=== PATIENT | male | born 1960 | race Caucasian/White ===

== ENCOUNTER 2017-07-10 12:33 | Emergency (ER) | payer OTHER ==
[~2017-07-10] VITALS: Ht 177.8 cm; Wt 92.0 kg
[2017-07-10 12:34] VITALS: BP 156/93; PULSE 128; RESP 20; TEMP 98.8; O2SAT 96
--- NOTE | 2017-07-10 12:50 | PD ---
Physical Exam Date Seen by Provider: Jul 10, 2017 Time Seen by Provider: 12:48 Narrative 57 YOWM C/O HEMORROIDS.. VISITING FOR [place]. NO ABD PAIN. VS REVIEWED PT WAITING FOR BED PLACEMENT. Data Data Last Documented VS Vital Signs Date Time Temp Pulse Resp B/P Pulse Ox O2 Delivery O2 Flow Rate FiO2 07/10/17 12:34 98.8 128 20 156/93 96 Room Air MDM Supervised Visit with GIULIANA: No Condition: Stable Amadeo Barnes Jul 10, 2017 12:50
[2017-07-10] MEDS ORDERED: DEXAMETHASONE SOD PHOS 4 MG/ML VIAL IM ONE (13:15)
[2017-07-10] MEDS ORDERED: RESP: ALBUTEROL 2.5 MG/IPRATROPIUM 0.5 MG NEB (SCH) NEB ONE (13:15)
--- NOTE | 2017-07-10 13:15 | PD ---
HPI Chief Complaint: GI Complaint Time Seen by Provider: 13:15 Travel History International Travel<30 days: No Contact w/Intl Traveler<30days: No Traveled to known affect area: No History of Present Illness HPI 57-year-old male presents to the emergency department for evaluation of hemorrhoid pain. Patient states he had food poisoning a few days ago with multiple bouts of diarrhea. He states this caused his hemorrhoids to act up. Reports using [id number] creams with no alleviation of his symptoms. Patient denies any abdominal pain now. He is having no pain. No nausea or vomiting. No diarrhea. He is requesting some intervention for shortness of breath that has been ongoing for the last 2 months however has worsened since he came to [place]. He is visiting temporarily. He states this has been worked up outpatient. He has had CT imaging studies and has seen a clinical safety specialist. He feels that he has had a cough develop that is intermittently productive. Denies any fever chills. No chest tightness. No other symptoms to report at this time. [facility] Past Medical History Anxiety: Yes High Cholesterol: Yes Diminished Hearing: No Hypertension: Yes Past Surgical History Surgical History: No Previous Surgery Social History Alcohol Use: Yes ([facility]) Tobacco Use: No Substance Use: No Allergies-Medications (Allergen,Severity, Reaction): Coded Allergies: No Known Allergies (Unverified , 07/10/17) Reported Meds & Prescriptions Reported Meds & Active Scripts Active Ventolin Hfa 18 GM Inh (Albuterol Sulfate) 90 Mcg/Act Aer 2 Puff INH Q4H PRN Tessalon Perles (Benzonatate) 100 Mg Cap 200 Mg PO TID PRN Medrol Dosepak (Methylprednisolone) 4 Mg Dspk 4 Mg PO DIRECTED Per Pharmacist direction Colace (Docusate Sodium) 100 Mg Capsule 1 Cap PO BID PRN Anucort-Hc Supp (Hydrocortisone Acetate Supp) 25 Mg Supp 25 Mg RECTAL TID PRN Reported Lisinopril 5 Mg Tab 5 Mg PO DAILY Pravastatin 20 Mg Tab 20 Mg PO DAILY Alprazolam 0.5 Mg Tab 0.5 Mg PO Q8H PRN Claritin (Loratadine) 10 Mg Cap 10 Mg PO DAILY Review of Systems Except as stated in HPI: all other systems reviewed are Neg Physical Exam Narrative GENERAL: Alert male patient, in no acute distress SKIN: Focused skin assessment warm/dry. HEAD: Atraumatic. Normocephalic. EYES: Pupils equal and round. No scleral icterus. No injection or drainage. ENT: No nasal bleeding or discharge. Mucous membranes pink and moist. NECK: Trachea midline. No JVD. CARDIOVASCULAR: Tachycardic rate and rhythm. No murmur appreciated. RESPIRATORY: No accessory muscle use. Diminished with a faint inspiratory wheeze to auscultation. Breath sounds equal bilaterally. GASTROINTESTINAL: Abdomen soft, non-tender, nondistended. Hepatic and splenic margins not palpable. RECTAL EXAM: Mild tenderness with a large external hemorrhoid noted. stool is brown. MUSCULOSKELETAL: No obvious deformities. No clubbing. No cyanosis. No edema. NEUROLOGICAL: Awake and alert. No obvious cranial nerve deficits. Motor grossly within normal limits. Normal speech. PSYCHIATRIC: Appropriate mood and affect; insight and judgment normal. Data Data Last Documented VS Vital Signs Date Time Temp Pulse Resp B/P Pulse Ox O2 Delivery O2 Flow Rate FiO2 07/10/17 12:34 98.8 128 20 156/93 96 Room Air Orders Albuterol-Ipratropium Neb (Duoneb Neb) (07/10/17 13:15) Dexamethasone Inj (Decadron Inj) (07/10/17 13:15) MDM Medical Decision Making Medical Screen Exam Complete: Yes Emergency Medical Condition: Yes Medical Record Reviewed: Yes Differential Diagnosis Hemorrhoid external versus internal versus anal mass versus URI versus pneumonia versus influenza Narrative Course 57-year-old male presents to the emergency department for evaluation. Patient appears without distress. He is tachycardic initially elevated he is anxious. After assessment in patient has time to calm down in the room, his heart rate does reduce 104 bpm. Discussed the patient with my attending physician. He is given a breathing treatment here in the emergency department. He'll be discharged home on a short course of oral steroids with albuterol inhaler. He' ll be discharged at this time. Diagnosis Primary Impression: Hemorrhoids Qualified Code: K64.9 - Hemorrhoids, unspecified hemorrhoid type Additional Impression: URI (upper respiratory infection) Qualified Code: J06.9 - Upper respiratory tract infection, unspecified type Referrals: Primary Care Physician Patient Instructions: General Instructions, Hemorrhoids (ED), Upper Respiratory Infection (ED) Additional Instructions: Avoid straining with bowel movements and heavy lifting Maintain adequate oral hydration Follow-up with your primary care provider Return immediately with any acute worsening of symptoms Med/Other Pt SpecificInfo: Prescription(s) given Scripts Albuterol 18 GM Inh (Ventolin Hfa 18 GM Inh)90 Mcg/Act Aer2 Puff INH Q4H PRN ( SHORTNESS OF BREATH) #1 INHALER Ref 0 Prov:Cordelia Otero 07/10/17 Benzonatate (Tessalon Perles)100 Mg [id number] Mg PO TID PRN (COUGH) #20 CAP Ref 0 Prov:Cordelia Otero 07/10/17 Methylprednisolone Dosepak (Medrol Dosepak)4 Mg Dspk4 Mg PO DIRECTED #1 DSPK Ref 0 Per Pharmacist direction Prov:Cordelia Otero 07/10/17 Docusate Sodium (Colace)100 Mg Capsule1 Cap PO BID PRN (CONSTIPATION) #20 Prov:Cordelia Otero 07/10/17 Hydrocortisone Acetate Supp (Anucort-Hc Supp)25 Mg Supp25 Mg RECTAL TID PRN ( HEMORRHOIDS) #21 SUPP Ref 0 Prov:Cordelia Otero 07/10/17 Disposition: 01 DISCHARGE HOME Condition: Stable Cordelia Otero Jul 10, 2017 13:15
[2017-07-10] MEDS ORDERED: VENTAER INH (13:39)
[2017-07-10] MEDS ORDERED: MEDR4PAK PO (13:39)
[2017-07-10] MEDS ORDERED: ANUC25SU RECTAL (13:39)
[2017-07-10] MEDS ORDERED: BENZ100 PO (13:39)
[2017-07-10] MEDS ORDERED: COLA100C PO (13:39)
[2017-07-10] MEDS ORDERED: CLAR10CA3 PO (13:46)
[2017-07-10] MEDS ORDERED: ALPR0.5T3 PO (13:46)
[2017-07-10] MEDS ORDERED: LISI-519 PO (13:46)
[2017-07-10] MEDS ORDERED: PRAV20TA2 PO (13:46)
== END 2017-07-10 14:08 | disposition home or self-care (01) ==
LOC: NEPD 12:33
DX: K64.9 Unspecified hemorrhoids (principal); J06.9 Acute upper respiratory infection, unspecified; R00.0 Tachycardia, unspecified; R06.02 Shortness of breath; R05 Cough; I10 Essential (primary) hypertension; E78.00 Pure hypercholesterolemia, unspecified; Z86.59 Personal history of other mental and behavioral disorders
CPT/HCPCS: 94664; 96372; 99284; J1100